=== PATIENT | female | born 1950 | race Two or more races ===

== ENCOUNTER 2020-08-13 07:45 | Day surgery (SDC) | payer OTHER ==
[~2020-08-13] VITALS: Ht 167.6 cm; Wt 80.3 kg
[~2020-08-13 07:45] MED LIST: ARICEPT5 MG PO; CLONAZEPAM1 MG PO; FOLIC ACID PO; JANUMET XR 1001 EACH PO; LANTUS; OMEPRAZOLE MAGN20 MG PO; PREDNISONE PO; SIMVAST PO; VASOTEC20 M1 PO
[2020-08-13] MEDS ORDERED: FLUOXETINE HCL20 MG (11:45)
[2020-08-13] MEDS ORDERED: ACTEMRA80 MG/4 ML (11:45)
[2020-08-13] MEDS ORDERED: METHOTREXATE2.5 MG (11:46)
[2020-08-13] MEDS ORDERED: OMEPRAZOLE20 MG (11:46)
[2020-08-13] MEDS ORDERED: SIMVASTATIN40 MG (11:46)
[2020-08-13] MEDS ORDERED: MEMANTINE HCL10 MG (11:46)
[2020-08-13] MEDS ORDERED: PREDNISONE10 M2 (11:46)
[2020-08-13] MEDS ORDERED: HYDROCHLOROTHIA25 MG (11:46)
[2020-08-13] MEDS ORDERED: NABUMETONE750 MG (11:46)
[2020-08-13] MEDS ORDERED: FOLIC ACID1 MG (11:46)
[2020-08-13] MEDS ORDERED: LORATADINE10 MG (11:47)
[2020-08-13] MEDS ORDERED: SEMGLEE100 UNIT/1 (11:47)
== END 2020-08-13 10:00 | disposition home or self-care (01) ==
LOC: CIR.AMB 07:45 → SURH 08:30 → CIR.AMB 10:00 → SURH 11:30 → EDSTATUS 11:30 → O/R 13:40
PROVIDERS: ATTEND Obstetrics & Gynecology Gynecologic Oncology
DX: D07.1 Carcinoma in situ of vulva (principal); Z20.822 Contact with and (suspected) exposure to COVID-19